=== PATIENT | male | born 1965 | race Caucasian/White ===

== ENCOUNTER → 2016-12-10 | Outpatient (CLI) | payer BC | END | disposition home or self-care (01) | LOC: GMAJ 13:21 | PROVIDERS: ATTEND Family Medicine | DX: E29.1 Testicular hypofunction (principal) ==

== ENCOUNTER → 2017-05-25 | Outpatient (CLI) | payer BC | LOC: GMAJ 14:59 | PROVIDERS: ATTEND Family Medicine | DX: E04.1 Nontoxic single thyroid nodule (principal) ==

== ENCOUNTER → 2017-05-30 | Outpatient (CLI) | payer BC ==
--- NOTE | 2017-05-30 10:48 | US ---
EXAM DESCRIPTION: Thyroid CLINICAL HISTORY: 51 years Male, E04.1 COMPARISON: None. FINDINGS: Thyroid sonography demonstrates normal echogenic thyroid bilaterally that is relatively symmetric with a 2 mm isthmus and the right lobe measuring 5.4 x 2.1 x 2.2 cm and the left lobe 5.1 x 1.9 x 1.7 cm. No abnormalities of the left lobe are noted. On the right at the junction of the mid and upper pole is a isoechoic 1.0 x 1.0 x 0.8 cm rounded nodule with a hypoechoic pseudocapsule. This represents a low suspicious nodule for thyroid malignancy. One-year follow-up examination for stability is recommended. IMPRESSION: Solitary 1 cm isoechoic nodule junction of the upper pole and mid right lobe of the thyroid without additional nodule. One year sonographic follow-up for stability is recommended. This represents a low suspicious nodule for thyroid malignancy. Electronically signed by: Abbe Flowers MD 05/30/2017 10:47 AM CDT
== END | disposition home or self-care (01) ==
LOC: US 08:18
PROVIDERS: ATTEND Family Medicine
DX: E04.1 Nontoxic single thyroid nodule (principal)

== ENCOUNTER → 2018-01-23 | Outpatient (CLI) | payer BC | LOC: GMAJ 14:03 | PROVIDERS: ATTEND Family Medicine | DX: Z00.00 Encounter for general adult medical examination without abnormal findings (principal) ==

== ENCOUNTER → 2019-05-23 | Outpatient (CLI) | payer BC | LOC: GMAJ 10:37 | PROVIDERS: ATTEND Family Medicine | DX: Z12.5 Encounter for screening for malignant neoplasm of prostate (principal); E29.1 Testicular hypofunction ==